=== PATIENT | female | born 1985 ===

== ENCOUNTER 2025-07-21 02:19 | Outpatient (CLI) | payer MEDICAID, SELFPAY ==
--- NOTE | 2025-07-21 10:39 | DI.MAMMO_ITS ---
Exam(s) MAMMO SCREENING EXAM: MAMMO SCREENING CLINICAL HISTORY: SCREENING, Z12.31. TECHNIQUE: Bilateral full field digital CC and MLO mammographic images were obtained with 3D tomosynthesis and utilizing computer aided detection (CAD). COMPARISON: None. This is a baseline mammo on a 39-year-old patient FINDINGS: Fibroglandular tissue pattern is very dense bilaterally; type D. There are no obvious spiculated masses nor malignant appearing microcalcification groups. There is no significant architectural distortion nor skin thickening-retraction. IMPRESSION: Very dense bilateral fibroglandular tissue. No obvious radiographic evidence of malignancy. BI-RADS Category 1 - Negative Breast Density - Category D - The breast are extremely dense, which lowers the sensitivity of the mammography. Breast density Category C or D implies that the patient has dense breast tissue. Dense breast tissue can make it harder to find cancer on a mammogram. Dense breast tissue is also associated with an increased risk of breast cancer. This information about the result of the mammogram report was provided to the patient to raise their awareness. Use this report when you speak with the patient about their risks for breast cancer, which includes their family history. At that time, you may recommend additional screening tests (Ultrasound or MRI) as these tests may add significant information. A negative radiographic report should not delay biopsy if a dominant or clinically suspicious mass is present. Up to ten percent of cancers are not identified on mammography. A negative report may reinforce clinical impression. Adenosis and dense breasts may obscure an underlying neoplasm. False positive reports average 6 to 10%. Patient will receive a letter notifying them of these results.
== END 2025-07-21 02:39 ==
LOC: DI 02:19
PROVIDERS: PCP Legal Medicine; Visit Provider Legal Medicine
DX: Z12.31 Encounter for screening mammogram for malignant neoplasm of breast (principal)
CPT/HCPCS: 77063; 77067